=== PATIENT | male | born 1965 | race Caucasian/White ===

== ENCOUNTER 2016-09-26 04:31 | Emergency (ER) | payer SELFPAY ==
[2016-09-26] MEDS ORDERED: NS 0.9% 1000 ML* 1,000 ML IV ONE (05:09)
[2016-09-26] MEDS ORDERED: Ketorolac INJ* 30 MG/ML 1 ML VIAL IV ONE (05:09)
[2016-09-26] MEDS ORDERED: Ketorolac INJ* 30 MG/ML 1 ML VIAL ONE (05:11)
--- NOTE | 2016-09-26 05:24 | ED ---
roberto Weber Timothy, scribed for Frederick Prince MD on 09/26/16 at 0509 . Headache - HPI Summary HPI Summary: Mike Gregory is a 51 yo male presenting to [facility] with 5/10 WOODY and sore throat with right neck pain since 09/21/16, with pain in the back of his head since 09/23. He denies any N/V or photophobia. He denies any PMHx. - History Of Current Complaint Stated Complaint: HEADACHE/SORE THROAT Time Seen by Provider: 09/26/16 05:07 Hx Obtained From: Patient Onset/Duration: Sudden Onset, Started days ago Initially Headache Was: Initial Pain Scale(0-10)= - 5 Currently Pain Is: Current Pain Scale(0-10)= - 5 Timing: Constant - Allergies/Home Medications Allergies/Adverse Reactions: Allergies Allergy/AdvReac Type Severity Reaction Status Date / Time No Known Allergies Allergy Verified 09/26/16 04:58 PMH/Surg Hx/FS Hx/Imm Hx Infectious Disease History: No Infectious Disease History: Denies: Traveled Outside the [place] in Last 30 Days - Family History Known Family History: Positive: Diabetes Negative: Cardiac Disease, Hypertension - Social History Alcohol Use: Weekly Substance Use Type: Reports: None Smoking Status (MU): Never Smoked Tobacco Review of Systems Constitutional: Negative Negative: Fever Eyes: Negative Negative: Photophobia Positive: Sore Throat Cardiovascular: Negative Respiratory: Negative Gastrointestinal: Negative Genitourinary: Negative Musculoskeletal: Other - right neck pain Skin: Negative Positive: Headache Psychological: Normal All Other Systems Reviewed And Are Negative: Yes Physical Exam Triage Information Reviewed: Yes Vital Signs On Initial Exam: Initial Vitals Temp Pulse Resp BP Pulse Ox 97.7 F 58 16 141/86 97 09/26/16 04:40 09/26/16 04:40 09/26/16 04:40 09/26/16 04:40 09/26/16 04:40 Vital Signs Reviewed: Yes Appearance: Positive: No Pain Distress Skin: Positive: Warm Head/Face: Positive: Normal Head/Face Inspection ENT: Positive: Pharynx normal, TMs normal Neck: Positive: Supple, Nontender Respiratory/Lung Sounds: Positive: Clear to Auscultation, Breath Sounds Present Cardiovascular: Positive: Normal Abdomen Description: Positive: Nontender, Soft Bowel Sounds: Positive: Present Musculoskeletal: Positive: Strength/ROM Intact Neurological: Positive: Sensory/Motor Intact, Alert, Oriented to Person Place, Time, Normal Gait Psychiatric: Positive: Affect/Mood Appropriate Diagnostics - Vital Signs Vital Signs Temp Pulse Resp BP Pulse Ox 09/26/16 04:47 57 96 09/26/16 04:45 97.7 F 58 16 141/86 97 09/26/16 04:44 141/86 09/26/16 04:40 97.7 F 58 16 141/86 97 - Laboratory Result Diagrams: 09/26/16 05:20 09/26/16 05:20 Lab Statement: Any lab studies that have been ordered have been reviewed, and results considered in the medical decision making process. - CT Brain CT Interpretation: No Acute Changes - Impression: No mass effect or intracranial hemorrhage. No acute abnormality seen. CT Interpretation Completed By: Radiologist - imaging probation and parole officer Re-Evaluation - Re-Evaluation First Eval Re-Evaluation Time: 06:00 Change: Improved Comment: Discussed lab and imaging results with the Pt. Pt is agreeable to be discharged home. Headache Course/Dx - Course Assessment/Plan: Mike Gregory is a 51 yo male presenting to [facility] with 5/10 WOODY, sore throat, and neck pain for the past 6 days. In the ED course he received toradol for pain management and IV fluids. His Brain CT suggests no acute abnormality. After clinical examination and review of his lab and imaging studies, he will be discharged home with viral sydnrome with appropriate instructions. - Diagnoses Differential Diagnosis/HQI/PQRI: Viral Syndrome Provider Diagnoses: Viral syndrome Discharge - Discharge Plan Condition: Stable Disposition: HOME Patient Education Materials: Viral Syndrome (ED) Referrals: [facility] [place] [facility] [Outside] - 2 Days Additional Instructions: Please follow up with your primary care physician regarding your visit to the emergency department today. Return to the emergency department with any new or recurring symptoms. The documentation as recorded by the roberto ruff Timothy accurately reflects the service I personally performed and the decisions made by , Frederick Prince MD.
[2016-09-26 05:40] LABS: Hematocrit 46 % (42-52); Hemoglobin 15.3 g/dl (14.0-18.0); Mean Corpuscular HGB Conc 34 g/dl (31-36); Mean Corpuscular Hemoglobin 28 pg (27-31); Mean Corpuscular Volume 83 fL (80-94); Mean Platelet Volume 8 um3 (7.4-10.4); Red Blood Count 5.49 10^6/ul (4.0-5.4); Red Cell Distribution Width 13 % (10.5-15)
[2016-09-26 05:55] LABS: BUN/Creatinine Ratio 16.4 (8-20); Calcium 9.3 mg/dL (8.6-10.3); EGFR African American 86.1 (>60); EGFR Non-African American 66.9 (>60); Globulin 2.9 g/dL (2-4); Potassium 4.1 mmol/L (3.5-5.0); Total Bilirubin 0.5 mg/dL (0.2-1.0); Total Protein 6.9 g/dL (6.4-8.9)
[2016-09-26 06:21] VITALS: BP 116/64
--- NOTE | 2016-09-26 08:00 | RAD ---
HISTORY: Headache, neck pain COMPARISONS: None TECHNIQUE: Multiple contiguous axial CT scans were obtained of the head without intravenous contrast. FINDINGS: HEMORRHAGE/INFARCT: There is no hemorrhage or acute infarct. MASSES/SHIFT: There is no mass or shift. EXTRA-AXIAL SPACES: There are no extra-axial fluid collections. SULCI AND VENTRICLES: The sulci and ventricles are normal in size and position for the patient's stated age. CEREBRUM: There are no focal parenchymal abnormalities. BRAINSTEM: There are no focal parenchymal abnormalities. CEREBELLUM: There are no focal parenchymal abnormalities. VESSELS: The vessels are grossly normal. PARANASAL SINUSES: There is a small air-fluid level within the sphenoid sinus. ORBITS: The orbits are unremarkable. BONES AND SOFT TISSUE: No bone or soft tissue abnormalities are noted. OTHER: None IMPRESSION: 1. NO ACUTE INTRACRANIAL PATHOLOGY. 2. MINIMAL SINUS MUCOSAL INFLAMMATORY DISEASE, WITH AN AIR-FLUID LEVEL IN THE SPHENOID SINUS. IN THE CORRECT CLINICAL SETTING, THIS MAY REPRESENT ACUTE SINUSITIS
== END 2016-09-26 06:15 | disposition home or self-care (01) ==
LOC: ED 04:31
DX: B34.9 Viral infection, unspecified (principal); R51 Headache; J02.9 Acute pharyngitis, unspecified
CPT/HCPCS: 36415; 70450; 80053; 83605; 85025; 99283; J1885

== ENCOUNTER 2017-10-15 13:39 | Emergency (ER) | payer BC ==
[2017-10-15] MEDS ORDERED: Tetan/Diph/Pertus SYR(Tdap)* 0.5 ML SYR(BOOSTRIX) use SYR IM ONE (14:24)
[2017-10-15] MEDS ORDERED: Ibuprofen TAB* 800 MG PO ONE (14:24)
[2017-10-15] MEDS ORDERED: Lidocaine 1%* 5 ML VIAL INJ ONE (14:43)
--- NOTE | 2017-10-15 15:03 | RAD ---
INDICATION: Right shoulder pain after a fall COMPARISON: None. TECHNIQUE: 4 views of the right shoulder were obtained. FINDINGS: Immediately superior to the distal most right clavicle is a 2 mm well-circumscribed bony focus that appears to be chronic/atraumatic. Otherwise the adequately corticated bones are in normal alignment. Joint spaces appear maintained. No fracture, dislocation or focal bony abnormality is seen. IMPRESSION: NO RADIOGRAPHIC EVIDENCE OF ACUTE TRAUMATIC INJURY TO THE RIGHT SHOULDER. If the patient's symptoms persist, follow-up imaging is recommended.
--- NOTE | 2017-10-15 15:04 | RAD ---
INDICATION: Fall COMPARISON: None TECHNIQUE: AP, lateral, and oblique views were obtained. FINDINGS: There is dorsal dislocation at the PIP joint of the third digit. There is may be a small avulsion fracture which can be reevaluated following reduction. No additional acute bony or joint space findings are noted. There is soft tissue swelling with deformity about the third digit. IMPRESSION: DORSAL DISLOCATION AT THE PIP JOINT OF THE THIRD DIGIT. POSTREDUCTION FILMS CAN EVALUATE POSSIBILITY OF ASSOCIATED SMALL AVULSION
--- NOTE | 2017-10-15 15:20 | ED ---
Upper Extremity Pain - HPI Summary HPI Summary: Patient is a 4-year-old male who presents emergency department for a left middle finger injury and a right shoulder injury that occurred just prior to arrival. Patient states he was working outside and was standing on a 4 foot stool when he fell. Pt. states he "tucked and rolled." Denies head injury or LOC. Denies h/a, neck pain, CP, SOB, abdominal pain. Symptoms are mild in severity. Moving affected areas make symptoms worse. Rest makes symptoms better. Unaware of his last tetanus immunization. - History of Current Complaint Chief Complaint: EDExtremityUpper Stated Complaint: LT MIDDLE FINGER INJURY Time Seen by Provider: 10/15/17 13:48 Hx Obtained From: Patient - Allergies/Home Medications Allergies/Adverse Reactions: Allergies Allergy/AdvReac Type Severity Reaction Status Date / Time No Known Allergies Allergy Verified 09/26/16 04:58 PMH/Surg Hx/FS Hx/Imm Hx Previously Healthy: Yes - Immunization History Immunizations Up to Date: Yes Infectious Disease History: No Infectious Disease History: Denies: Traveled Outside the [place] in Last 30 Days - Family History Known Family History: Positive: Diabetes Negative: Cardiac Disease, Hypertension - Social History Occupation: Employed Full-time Lives: With Family Alcohol Use: Weekly Substance Use Type: Reports: None Smoking Status (MU): Never Smoked Tobacco Review of Systems Positive: Other - Right should pain. [place]acer[place]o and pain to left 3rd digit of hand. All Other Systems Reviewed And Are Negative: Yes Physical Exam Triage Information Reviewed: Yes Vital Signs On Initial Exam: Initial Vitals Temp Pulse Resp BP Pulse Ox 97.1 F 98 20 101/80 95 10/15/17 13:40 10/15/17 13:40 10/15/17 13:40 10/15/17 13:40 10/15/17 13:40 Vital Signs Reviewed: Yes Appearance: Positive: Well-Appearing - Patient sitting in bed in no acute distress. Pleasant. present. Skin: Positive: Warm, Dry Head/Face: Positive: Normal Head/Face Inspection Eyes: Positive: Normal Neck: Positive: Supple Musculoskeletal: Positive: Other - Right upper extremity is neurovascularly intact. Mild pain with range of motion of the right shoulder. No obvious deformity. Mild form edema noted to the left heard digit of hand. There is a 1.5 cm horizontal laceration noted between the MCP and PIP joint on the palmar aspect. Difficult to assess tendons secondary to patient's pain. No proximal injuries. Neurological: Positive: Normal, CN Intact II-III Psychiatric: Positive: Affect/Mood Appropriate Procedures - Joint Reduction Left Joint Reduction Site: other - 3rd digit of left hand Specify Other Joint Reduced: 3rd digit of left hand Conscious Sedation: No - digital block was used using 4 cc of 1% lidocaine Reduction Attempts: 1 Pre-Procedure NV Exam: Yes Post Joint Reduction Film: joint reduced - Laceration/Wound Repair 1 Location: Other - left third digit of hand Length, Depth and Shape: 1.5cm linear Betadine Prep?: No - Hibiclens used Irrigated w/ Saline (ccs): 50 Laceration/Wound Explored: clean Closure: Single Layer Suture Type: Nylon Number of Sutures: 3 Layer Closure?: No Sterile Dressing Applied?: Yes Diagnostics - Vital Signs Vital Signs Temp Pulse Resp BP Pulse Ox 10/15/17 13:40 97.1 F 98 20 101/80 95 - Laboratory Lab Statement: Any lab studies that have been ordered have been reviewed, and results considered in the medical decision making process. Course/Dx - Course Course Of Treatment: Patient presenting with a finger injury and a right shoulder injury after falling off of a short ladder. He has no head, chest or abdominal trauma and has no other complaints. Tetanus was updated. He was given ibuprofen for pain. Shoulder x-ray is unremarkable for acute findings, reading per radiology. Finger x-ray shows a dislocation of the PIP joint of the third digit, questionable avulsion fracture reading per radiology. Given laceration near joint injury, I did speak with on-call orthopedics, Dr. Rodriguez , who states joint should be reduced, washed out and assess for tendon laceration. If tendon laceration is not suspected wound can be loosely closed and finger splinted. Prophylactic antibiotics recommended. Digital block was used to third digit with good local anesthesia. Wound was copiously irrigated. Joint was easily reduced as noted above. After reduction patient has full strength and range of motion with flexion of the third digit. Finger was splinted at a 90 angle. Post reduction x-ray shows the return of in anatomical position of finger with questionable displaced fracture of the proximal, volar corner, reading per radiology. Plain and results were discussed with patient. Started on Keflex. Patient to call the orthopedic office tomorrow morning for a close follow-up appointment. Sutures removed in 7 -10 days. Advised patient to keep the wound clean and dry with daily wound dressing changes. To keep splint in place. To ice and elevate. Tylenol or Motrin for pain as directed. Patient to return to the ER for redness, swelling or drainage from wound site. Pt. understands and agrees with plan. - Diagnoses Provider Diagnoses: Finger dislocation, Finger laceration, Avulsion fracture Discharge - Sign-Out/Discharge Documenting (check all that apply): Discharge/Admit/Transfer - Discharge Plan Condition: Good Disposition: HOME Prescriptions: Cephalexin CAP* [Keflex CAP*] 500 mg PO BID #20 cap Patient Education Materials: Finger Fracture (ED), Shoulder Sprain (ED), Finger Dislocation (ED) Referrals: Harrison Zambrano MD [Primary Care Provider] - Steve Rodriguez MD [Medical Doctor] - Additional Instructions: Call Dr. Rodriguez's office tomorrow morning for an appointment Suture removal in 7-10 days Keep wound clean and dry Take antibiotic as directed Keep finger splint in place Ice and elevate Tylenol or Motrin for pain as directed Return to ER for redness, swelling or drainage to wound - Billing Disposition and Condition Condition: GOOD Disposition: Home
--- NOTE | 2017-10-15 16:25 | RAD ---
INDICATION: Status post reduction of dislocated left middle finger proximal interphalangeal joint COMPARISON: Left and radiograph October 15, 2017 TECHNIQUE: 3 views of the left middle finger were obtained. FINDINGS: On the lateral view images there is lucency overlying the cortex of the proximal volar corner of the left middle finger middle phalanx. Otherwise the bones are normal alignment. Joint spaces appear maintained. IMPRESSION: ANATOMIC ALIGNMENT OF THE LEFT MIDDLE FINGER STATUS POST REDUCTION. THERE IS QUESTIONABLE NONDISPLACED FRACTURE AT THE PROXIMAL, VOLAR CORNER OF THE LEFT MIDDLE FINGER MIDDLE PHALANX.
[2017-10-15 16:43] VITALS: BP 121/79
== END 2017-10-15 16:43 | disposition home or self-care (01) ==
LOC: ED 13:39
DX: S62.643A Nondisplaced fracture of proximal phalanx of left middle finger, initial encounter for closed fracture (principal); W07.XXXA Fall from chair, initial encounter; Y92.9 Unspecified place or not applicable; Z23 Encounter for immunization
CPT/HCPCS: 73140; 90471; 90715; 99282; A9270-GY

== ENCOUNTER 2019-07-18 08:23 | Emergency (ER) | payer BC ==
[2019-07-18] MEDS ORDERED: Ketorolac INJ* 30 MG/ML 1 ML VIAL IV PUSH ONE (08:35)
[2019-07-18] MEDS ORDERED: HYDROmorphone INJ1* 1 MG/ML SYRINGE IV SLOW PU ONE (08:35)
[2019-07-18] MEDS ORDERED: NS 0.9% 1000 ML** 1,000 ML IV ONE (08:35)
[2019-07-18] MEDS ORDERED: Ondansetron INJ* 2 MG/ML VIAL IV ONE (08:35)
--- NOTE | 2019-07-18 08:37 | ED ---
Abdominal Pain/Male - HPI Summary HPI Summary: This patient is a 53 year old male presenting to [facility] with a chief complaint of right abdominal pain since this mornign. The patient states he feels like his right abdomen is exploding. He states diaphoresis, nausea, and vomiting. Patient states his pain is 10/10 in severity. - History of Current Complaint Chief Complaint: EDAbdPain Stated Complaint: ABD PAIN Time Seen by Provider: 07/18/19 08:31 Hx Obtained From: Patient Onset/Duration: Lasting Hours Pain Intensity: 10 Pain Scale Used: 0-10 Numeric Location: Discrete At: RUQ, Discrete At: RLQ - Allergies/Home Medications Allergies/Adverse Reactions: Allergies Allergy/AdvReac Type Severity Reaction Status Date / Time No Known Allergies Allergy Verified 09/26/16 04:58 Home Medications: Home Medications Cephalexin CAP* [Keflex CAP*] 500 mg PO BID #20 cap 10/15/17 [Rx] HYDROcodone/ACETAMIN 5-325 MG* [Morton 5-325 TAB*] 1 tab PO Q6H PRN #20 tab MDD 4 07/18/19 [Rx] Tamsulosin CAP* [Flomax CAP*] 0.4 mg PO DAILY #7 cap 07/18/19 [Rx] PMH/Surg Hx/FS Hx/Imm Hx Sensory History: Denies: Hx Deafness EENT History: Denies: Hx Deafness Neurological History: Denies: Hx Dementia Infectious Disease History: No Infectious Disease History: Denies: Traveled Outside the [place] in Last 30 Days - Family History Known Family History: Positive: Diabetes Negative: Cardiac Disease, Hypertension - Social History Alcohol Use: Weekly Substance Use Type: Reports: None Smoking Status (MU): Never Smoked Tobacco Review of Systems Positive: Skin Diaphoresis Positive: Abdominal Pain, Vomiting, Nausea All Other Systems Reviewed And Are Negative: Yes Physical Exam - Summary Physical Exam Summary: Appearance: The patient is an obese male in acute pain distress. Skin: The skin is warm and dry, and skin color reflects adequate perfusion. HEENT: The head is normocephalic and atraumatic. The pupils are equal and reactive. The conjunctivae are clear and without drainage. Nares are patent and without drainage. Mouth reveals moist mucous membranes, and the throat is without erythema and exudate. The external ears are intact. The ear canals are patent and without drainage. The tympanic membranes are intact. Neck: The neck is supple with full range of motion and non-tender. There are no carotid bruits. There is no neck vein distension. Respiratory: Chest is non-tender. Lungs are clear to auscultation and breath sounds are symmetrical and equal. Cardiovascular: Heart is regular rate and rhythm. There is no murmur or rub auscultated. There is no peripheral edema and pulses are symmetrical and equal. Abdomen: The abdomen is soft and right-sided tenderness with guarding. There are normal bowel sounds heard in all four quadrants and there is no organomegaly palpated. Musculoskeletal: There is no back tenderness noted. Extremities are non-tender with full range of motion. There is good capillary refill. There is no peripheral edema or calf tenderness elicited. Neurological: Patient is alert and oriented to person, place and time. The patient has symmetrical motor strength in all four extremities. Cranial nerves are grossly intact. Deep tendon reflexes are symmetrical and equal in all four extremities. Psychiatric: The patient has an appropriate affect and does not exhibit any anxiety or depression. Triage Information Reviewed: Yes Vital Signs On Initial Exam: Initial Vitals Temp Pulse Resp BP Pulse Ox 97.2 F 63 24 149/81 98 07/18/19 08:24 07/18/19 08:24 07/18/19 08:24 07/18/19 08:24 07/18/19 08:24 Vital Signs Reviewed: Yes Procedures - Sedation Patient Received Moderate/Deep Sedation with Procedure: No Diagnostics - Vital Signs Vital Signs Temp Pulse Resp BP Pulse Ox 07/18/19 08:24 97.2 F 63 24 149/81 98 - Laboratory Result Diagrams: 07/18/19 08:41 07/18/19 08:39 Lab Statement: Any lab studies that have been ordered have been reviewed, and results considered in the medical decision making process. - CT Abd/Pel CT Interpretation Completed By: Radiologist Summary of CT Findings: 1. Questionable barely perceptible calculus in the distal right ureter near the UVJ. No hydronephrosis. ED Provider has reviewed this report. Abdominal Pain Male Course/Dx - Course Course Of Treatment: Mr. Gregory was obviously in a lot of distress on arrival. He was complaining of pain in the right flank. An IV was immediately initiated and he was given a cocktail of hydromorphone, ondansetron and ketorolac as well as IV fluids. Labs and CT was obtained. CT shows a small right UVJ stone that is not causing obstruction. His urine was equivocal with mildly positive white blood cells as well as blood and red blood cells. Urine was sent for culture and I do not think it needs to be treated at this time. He is not obstructed and this is likely a negative urine. I recommended close follow-up with urology pain control as well as Flomax. - Diagnoses Provider Diagnoses: Kidney stone Discharge ED - Sign-Out/Discharge Documenting (check all that apply): Patient Departure - Discharge - Discharge Plan Condition: Stable Disposition: HOME Prescriptions: HYDROcodone/ACETAMIN 5-325 MG* [Morton 5-325 TAB*] 1 tab PO Q6H PRN #20 tab MDD 4 PRN Reason: Pain Tamsulosin CAP* [Flomax CAP*] 0.4 mg PO DAILY #7 cap Patient Education Materials: Kidney Stones (ED) Referrals: Norberto Jauregui MD [Medical Doctor] - 3 Days Additional Instructions: Return to ED with new or worsening symptoms. Follow up with Urology. - Billing Disposition and Condition Condition: STABLE Disposition: Home - Attestation Statements Document Initiated by Scribe: Yes Documenting Scribe: Judah Bhatia Provider For Whom Vandaibe is Documenting (Include Credential): Boni Thomason MD Scribe Attestation: IJudah, scribed for Boni Thomason MD on 07/18/19 at 1607. Scribe Documentation Reviewed: Yes Provider Attestation: The documentation as recorded by the Judah ruff accurately reflects the service I personally performed and the decisions made by me, Boni Thomason MD Status of Scribe Document: Viewed
[2019-07-18 08:53] LABS: ABS Basophils 0.1 10^3/ul (0-0.2); ABS Eosinophils 0.2 10^3/ul (0-0.6); ABS Lymphocytes 2.6 10^3/ul (1.0-4.8); ABS Monocytes 0.8 10^3/ul (0-0.8); ABS Neutrophils 5.2 10^3/ul (1.5-7.7); Eosinophil % 2.4 %; Hematocrit 48 % (42-52); Hemoglobin 16.3 g/dL (14.0-18.0); Lymphocyte % 29.4 %; Mean Corpuscular HGB Conc 34 g/dL (31-36); Mean Corpuscular Hemoglobin 29 pg (27-31); Mean Corpuscular Volume 84 fL (80-94); Mean Platelet Volume 7.6 fL (7.4-10.4); Nucleated Red Blood Cells % 0.1; Platelet Count 202 10^3/uL (150-450); Red Blood Count 5.68 10^6 /uL (4.18-5.48); Red Cell Distribution Width 13 % (10-15); White Blood Count 8.8 10^3/uL (3.5-10.8)
[2019-07-18 09:08] LABS: Albumin 4.5 g/dL (3.2-5.2); Albumin/Globulin Ratio 1.6 (1-3); BUN/Creatinine Ratio 11.6 (8-20); C Reactive Protein 6.34 mg/L (<8.01); Calcium 10.3 mg/dL (8.6-10.3); EGFR African American 61.1 (>60); EGFR Non-African American 50.5 (>60); Globulin 2.9 g/dL (2-4); Total Bilirubin 0.6 mg/dL (0.2-1.0); Total Protein 7.4 g/dL (6.4-8.9)
[2019-07-18 09:11] LABS: Potassium 5.4 mmol/L (3.5-5.0)
[2019-07-18 10:40] LABS: Urine Appearance Cloudy; Urine Bilirubin Negative (Negative); Urine Blood 3+ (Negative); Urine Color Amber; Urine Glucose Negative (Negative); Urine Ketones Negative (Negative); Urine Nitrite Negative (Negative); Urine Protein 1+(30 mg/dL) (Negative); Urine Specific Gravity 1.013 (1.010-1.030); Urine Urobilinogen Negative (Negative)
[2019-07-18 10:52] LABS: Urine Bacteria Absent (Absent); Urine Red Blood Cell 3+(>10/hpf) (Absent); Urine White Blood Cell 1+(6-10/hpf) (Absent)
[2019-07-18 13:31] VITALS: BP 115/69
== END 2019-07-18 13:29 | disposition home or self-care (01) ==
LOC: ED 08:23
DX: N20.1 Calculus of ureter (principal); R10.11 Right upper quadrant pain; R10.31 Right lower quadrant pain; R11.2 Nausea with vomiting, unspecified; R61 Generalized hyperhidrosis
CPT/HCPCS: 36415; 74176; 80053; 81003; 81015; 83605; 83690; 85025; 86140; 87086; 96361; 96374; 96375; 99283; J1170; J1885; J2405